=== PATIENT | female | born 1980 ===

== ENCOUNTER 2018-06-20 05:50 | Emergency (ER) | payer SELFPAY ==
[2018-06-20 07:00] LABS: Basophils # (Auto) 0.1 K/mm3 (0.0-0.1); Eosinophils # (Auto) 0.3 K/mm3 (0.0-0.4); Eosinophils % (Auto) 3.6 % (0.0-4.3); Hematocrit 38.7 % (30.3-42.9); Hemoglobin 12.7 gm/dl (10.1-14.3); Lymphocytes # (Auto) 3.1 K/mm3 (1.2-5.4); Mean Corpuscular HGB Conc 33 % (30-34); Mean Corpuscular Hemoglobin 29 pg (28-32); Mean Corpuscular Volume 87 fl (79-97); Monocytes # (Auto) 0.4 K/mm3 (0.0-0.8); Platelet Count 306 K/mm3 (140-440); Red Blood Count 4.47 M/mm3 (3.65-5.03); Red Cell Distribution Width 14.9 % (13.2-15.2)
[2018-06-20 07:16] LABS: BUN/Creatinine Ratio 20; Blood Urea Nitrogen 12 mg/dL (7-17); Calcium 9.7 mg/dL (8.4-10.2); Hemolysis Index 0
[2018-06-20] MEDS ORDERED: DILAUDID IV ONE (09:52)
[2018-06-20] MEDS ORDERED: TORADOL IV ONE (09:52)
[2018-06-20] MEDS ORDERED: ZOFRAN IV ONE (09:52)
[2018-06-20] MEDS ORDERED: DILAUDID IV PRN (09:53)
[2018-06-20] MEDS ORDERED: BENADRYL IV ONE (09:53)
[2018-06-20] MEDS ORDERED: NACL 0.9% 1000 ML 1,000 ML IV ONE (10:40)
--- NOTE | 2018-06-20 10:45 | Emergency Department Report ---
ED Chest Pain HPI - General Chief Complaint: Chest Pain Stated Complaint: CHEST PAIN Time Seen by Provider: 06/20/18 09:39 Source: patient Mode of arrival: Ambulatory Limitations: No Limitations - History of Present Illness Initial Comments: 37 year old female with a past medical history of asthma, obesity, multiple pulmonary emboli, seizures, and IVC filter placement presents to the hopital complaining of severe right sided sharp chest pain worse with inspiration started last night. Pain is rated 10/10 in intensity, intermittent, worse with inspiration. No change with palpation. Shortness of breath associated with pain. Denies nausea, vomiting, diaphoresis, recent travel, or both control pill use. Patient states she has multiple pulmonary emboli in the past and states that she was told she does have a undiagnosed clotting disorder but tested negative for the specific disorders in the past. She is not currently on any anticoagulation. She also states she has allergy to IV contrast (Hives no airway issues) but can tolerate contrast as long as she receives Benadryl and I imagine within [address] scan which she has done multiple times in the past. Severity scale (0 -10): 8 - Related Data Previous Rx's Medication Instructions Recorded Last Taken Type HYDROcodone/APAP 5-325 [Solomon 1 each PO Q6HR PRN #20 tablet 06/20/18 Unknown Rx 5/325] Ibuprofen [Motrin] 800 mg PO Q8HR PRN #30 tablet 06/20/18 Unknown Rx Allergies Allergy/AdvReac Type Severity Reaction Status Date / Time Cephalosporins Allergy Hives Verified 06/20/18 06:04 Penicillins Allergy Hives Verified 06/20/18 06:04 Heart Score - HEART Score History: Slightly suspicious EKG: Normal Age: < 45 Risk factors: 1-2 risk factors Troponin: < normal limit HEART Score: 1 ED Review of Systems ROS: Stated complaint: CHEST PAIN Other details as noted in HPI Comment: All other systems reviewed and negative ED Past Medical Hx - Past Medical History Hx Pulmonary Embolism: Yes Hx Seizures: Yes Hx Asthma: Yes - Surgical History Additional Surgical History: IVC filter placement - Social History Smoking Status: Never Smoker Substance Use Type: None - Medications Home Medications: Home Medications Medication Instructions Recorded Confirmed Last Taken Type HYDROcodone/APAP 5-325 [Solomon 1 each PO Q6HR PRN #20 tablet 06/20/18 Unknown Rx 5/325] Ibuprofen [Motrin] 800 mg PO Q8HR PRN #30 tablet 06/20/18 Unknown Rx ED Physical Exam - General Limitations: No Limitations - Other Other exam information: General: No limitations, patient is alert in no acute distress Head exam: Atraumatic, normocephalic Eyes exam: Normal appearance ENT: Moist mucous membrane, normal oropharynx Neck exam: Normal inspection, full range of motion, no meningismus nontender Respiratory exam: Clear to auscultation bilateral, no wheezes, rales, crackles Cardiovascular: Normal rate and rhythm, normal heart sounds, chest wall nontender Abdomen: Soft, nondistended, and nontender, with normal bowel sounds, no rebound, or guarding Extremity: Full range of motion normal inspection no deformity, no calf tenderness or edema Back: Normal Inspection, full range of motion, no tenderness Neurologic: Alert, oriented x3, cranial nerves intact, no motor or sensory deficit Psychiatric: normal affect, normal mood Skin: Warm, dry, intact ED Course Vital Signs 06/20/18 06/20/18 06/20/18 05:55 06:43 06:45 Temperature 98.5 F Pulse Rate 116 H 98 H Respiratory 16 17 19 Rate Blood Pressure 115/86 101/62 O2 Sat by Pulse 98 Oximetry 06/20/18 06/20/18 06/20/18 07:00 07:02 07:30 Temperature Pulse Rate 74 71 Respiratory 15 18 19 Rate Blood Pressure 87/56 101/62 O2 Sat by Pulse 98 98 Oximetry 06/20/18 06/20/18 08:00 10:17 Temperature Pulse Rate 82 Respiratory 19 20 Rate Blood Pressure 96/63 O2 Sat by Pulse 98 Oximetry ERMIAS score - Ermias Score Age > 65: (0) No Aspirin use within the Past 7 Days: (0) No 3 or more CAD Risk Factors: (0) No 2 or more Angina events in past 24 hrs: (0) No Known CAD with more than 50% Stenosis: (0) No Elevated Cardiac Markers: (0) No ST Deviation Greater than 0.5mm: (0) No ERMIAS Score: 0 ED Medical Decision Making - Lab Data Result diagrams: 06/20/18 06:26 06/20/18 06:26 Lab Results 06/20/18 06/20/18 06/20/18 Range/Units 06:26 06:26 09:11 WBC 7.9 (4.5-11.0) K/mm3 RBC 4.47 (3.65-5.03) M/mm3 Hgb 12.7 (10.1-14.3) gm/dl Hct 38.7 (30.3-42.9) % MCV 87 (79-97) fl MCH 29 (28-32) pg MCHC 33 (30-34) % RDW 14.9 (13.2-15.2) % Plt Count 306 (140-440) K/mm3 Lymph % (Auto) 39.0 H (13.4-35.0) % [place] % (Auto) 5.0 (0.0-7.3) % Eos % (Auto) 3.6 (0.0-4.3) % Baso % (Auto) 1.0 (0.0-1.8) % Lymph # 3.1 (1.2-5.4) K/mm3 [place] # 0.4 (0.0-0.8) K/mm3 Eos # 0.3 (0.0-0.4) K/mm3 Baso # 0.1 (0.0-0.1) K/mm3 Seg Neutrophils % 51.4 (40.0-70.0) % Seg Neutrophils # 4.1 (1.8-7.7) K/mm3 D-Dimer (0-234) ng/mlDDU Sodium 140 (137-145) mmol/L Potassium 4.0 (3.6-5.0) mmol/L Chloride 103.7 (98-107) mmol/L Carbon Dioxide 23 (22-30) mmol/L Anion Gap 17 mmol/L BUN 12 (7-17) mg/dL Creatinine 0.6 L (0.7-1.2) mg/dL Estimated GFR > 60 ml/min BUN/Creatinine Ratio 20 % Glucose 100 (65-100) mg/dL Calcium 9.7 (8.4-10.2) mg/dL Troponin T < 0.010 < 0.010 (0.00-0.029) ng/mL HCG, Qual (Negative) 06/20/18 06/20/18 Range/Units 09:11 09:48 WBC (4.5-11.0) K/mm3 RBC (3.65-5.03) M/mm3 Hgb (10.1-14.3) gm/dl Hct (30.3-42.9) % MCV (79-97) fl MCH (28-32) pg MCHC (30-34) % RDW (13.2-15.2) % Plt Count (140-440) K/mm3 Lymph % (Auto) (13.4-35.0) % [place] % (Auto) (0.0-7.3) % Eos % (Auto) (0.0-4.3) % Baso % (Auto) (0.0-1.8) % Lymph # (1.2-5.4) K/mm3 [place] # (0.0-0.8) K/mm3 Eos # (0.0-0.4) K/mm3 Baso # (0.0-0.1) K/mm3 Seg Neutrophils % (40.0-70.0) % Seg Neutrophils # (1.8-7.7) K/mm3 D-Dimer 227.36 (0-234) ng/mlDDU Sodium (137-145) mmol/L Potassium (3.6-5.0) mmol/L Chloride (98-107) mmol/L Carbon Dioxide (22-30) mmol/L Anion Gap mmol/L BUN (7-17) mg/dL Creatinine (0.7-1.2) mg/dL Estimated GFR ml/min BUN/Creatinine Ratio % Glucose (65-100) mg/dL Calcium (8.4-10.2) mg/dL Troponin T (0.00-0.029) ng/mL HCG, Qual Negative (Negative) - EKG Data -: EKG Interpreted by Ia EKG shows normal: sinus rhythm, axis (qrs 90), QRS complexes (qrsd 95), ST-T waves (no stemi/t inv) Rate: tachycardia (110) - EKG Data When compared to previous EKG there are: previous EKG unavailable 06/20/18 10:46 repeat EKG shows tachycardia improves with a normal sinus rhythm rate of 77. QRS axis 59, QRS duration 100, no T-wave inversions or ST elevation. - Radiology Data Radiology results: report reviewed ct angio chest: No pulmonary embolism or aortic dissection. Negative as per radiologist - Medical Decision Making d-dimer neg ct angio negative pt has ivc filter pleuritc pain without any other acute abnormality Heart rate improved spontaneously will be treated symptomatically and follow up encouraged Patient has several outlier blood pressure measurements with a systolic less than 100. I believe that these are erroneous secondary to poor cuff position and would not verified by RN prior to become a part of medical record. They were automatically captureed. Systolic blood pressure remained over 100 when checked at bedside with verfification of proper cuff and pt arm position. - Differential Diagnosis costochondritis, pleurisy, pneumonia, pneumothorax, PE Critical Care Time: No Critical care attestation.: If time is entered above; I have spent that time in minutes in the direct care of this critically ill patient, excluding procedure time. ED Disposition Clinical Impression: Pleuritic chest pain, Hx of pulmonary embolus, Presence of IVC filter Disposition: - TO HOME OR SELFCARE Is pt being admited?: No Does the pt Need Aspirin: No Condition: Stable Instructions: Chest Pain (ED) Additional Instructions: Take the medication as prescribed and as needed for pain. Take a copy of the CAT scan report to your doctor for follow-up. Return if symptoms worsen as indicated by your discharge instructions Prescriptions: HYDROcodone/APAP 5-325 [Solomon 5/325] 1 each PO Q6HR PRN #20 tablet PRN Reason: Pain Ibuprofen [Motrin] 800 mg PO Q8HR PRN #30 tablet PRN Reason: Pain, Moderate (4-6) Referrals: PRIMARY CARE, [Primary Care Provider] - 3-5 Days Time of Disposition: 11:40
--- NOTE | 2018-06-20 11:28 | Cat Scan Report ---
FINAL REPORT EXAM: CT ANGIO CHEST HISTORY: pleuritc r cp, hx of multiple PE TECHNIQUE: CT angiography of the chest was performed. 100 cc Omnipaque 350 IV was administered. Axial images and coronal and sagittal reformatted images were obtained. PRIORS: None. FINDINGS: There is no aortic dissection seen. There is no significant mediastinal or hilar mass seen. There are no filling defects seen within the pulmonary arterial circulation to suggest pulmonary embolism. There are no pleural effusions seen. There is no pneumothorax seen. The lungs are clear. IMPRESSION: There is no pulmonary embolism or aortic dissection seen.
--- NOTE | 2018-06-20 11:57 | XRay Report ---
FINAL REPORT EXAM: XR CHEST ROUTINE 2V HISTORY: sob TECHNIQUE: Chest, two views PRIORS: None. FINDINGS: The heart size is normal. Mediastinal contours are normal. Pulmonary vasculature is not congested. The lungs are clear. There are no pleural effusion seen. There is no evidence of pneumothorax. IMPRESSION: There is no acute abnormality identified.
[2018-06-20 12:29] VITALS: BP 128/78
== END 2018-06-20 12:28 | disposition home or self-care (01) ==
LOC: ED 05:50
DX: R07.81 Pleurodynia (principal); J45.909 Unspecified asthma, uncomplicated; Z95.828 Presence of other vascular implants and grafts; Z86.711 Personal history of pulmonary embolism; Z91.041 Radiographic dye allergy status; Z88.1 Allergy status to other antibiotic agents; Z88.0 Allergy status to penicillin
CPT/HCPCS: 36415; 71046; 71275; 80048; 84484; 84703; 85025; 85379; 93005; 93010; 96374; 96375; 96376; 99285; J1170; J1200; J1885; J2405; J2930; J7030; Q9967